=== PATIENT | female | born 1940 | race African-American/Black ===

== ENCOUNTER 2019-05-19 20:31 | Inpatient (IN) | payer MEDICARE, BC ==
[~2019-05-19] VITALS: Ht 165.1 cm; Wt 88.5 kg
[~2019-05-19 20:31] MED LIST: MIDAZOLAM HCL 5 MG/ML VIAL ONE
--- NOTE | 2019-05-19 20:31 | NUR ---
Versed 4mg IV ordered by Carlitos SHEETS and given emergently to Charlie CUEVAS 2031 - Succ. 100mg IV ordered by Carlitos SHEETS and given emergently to Charlie CUEVAS
--- NOTE | 2019-05-19 20:31 | NUR ---
Pt. BIB RA 88 for Resp. Arrest, RT called, at bedside,
--- NOTE | 2019-05-19 20:35 | NUR ---
RT at bedside, pt. entubated by ,
--- NOTE | 2019-05-19 20:37 | NUR ---
Intubated @ 2036 @ 25mm @ the lip
--- NOTE | 2019-05-19 20:38 | NUR ---
Xray confirmed placement of ET tube
[2019-05-19] MEDS ORDERED: IV NORMAL SALINE 500 ML BAG IV ONE (21:00)
--- NOTE | 2019-05-19 21:12 | NUR ---
Phleb. tech. at bedside for blood draw, blood specimens collected and sent to lab, pt. on A/C 16 rate, 700 tidal volume, 0 peep,
[2019-05-19] MEDS ORDERED: PROPOFOL 1,000 MG/100 ML BOTTLE IV ONE (21:15)
[2019-05-19] MEDS ORDERED: FUROSEMIDE 20 MG/2 ML VIAL IV ONE (21:15)
--- NOTE | 2019-05-19 21:15 | NUR ---
IV propofol ordered to titrate - began at 10 mcg/kg/min on R AC
[2019-05-19 21:17] LABS: BASOPHILS % (AUTO) 0.4 % (0.0-2.0); EOSINOPHILS # (AUTO) 0.1 K/uL (0.0-0.7); EOSINOPHILS % (AUTO) 1.7 % (0.0-7.0); HEMATOCRIT 38.4 % (31.2-41.9); LYMPHOCYTES # (AUTO) 1.4 K/uL (20.0-40.0); LYMPHOCYTES % (AUTO) 15.9 % (20.5-51.5); MEAN CORPUSCULAR HEMOGLOBIN 28.1 uug (24.7-32.8); MEAN CORPUSCULAR HGB CONC 31 g/dL (32.3-35.6); MEAN CORPUSCULAR VOLUME 90.2 fL (75.5-95.3); MONOCYTES # (AUTO) 0.3 K/uL (2.0-10.0); MONOCYTES % (AUTO) 3.5 % (0.0-11.0); NEUTROPHILS % (AUTO) 78.5 % (38.5-71.5); PLATELET COUNT (AUTO) 198 K/uL (179-408); RED BLOOD CELL COUNT(AUTO) 4.25 MIL/uL (3.63-4.92); WHITE BLOOD COUNT (AUTO) 8.9 K/uL (3.8-11.8)
[2019-05-19] MEDS ORDERED: PROPOFOL 100 ML ONE (21:20)
[2019-05-19 21:27] LABS: CARBON DIOXIDE 21 mmol/L (21-32); CHLORIDE 108 mmol/L (98-107); CREATININE 1.6 mg/dL (0.6-1.3); GLUCOSE 158 mg/dL (74-106); POTASSIUM 4.1 mmol/L (3.5-5.1); UREA NITROGEN, BLOOD 32 mg/dL (7-18)
[2019-05-19] MEDS ORDERED: LEVO100T10 PO (21:31)
[2019-05-19] MEDS ORDERED: CARV25TA2 PO (21:31)
[2019-05-19] MEDS ORDERED: FUROSEMIDE 40 MG/4 ML VIAL ONE (21:34)
[2019-05-19 21:39] LABS: ALANINE AMINOTRANSFERASE 15 U/L (14-59); ALKALINE PHOSPHATASE 134 U/L (50-136); ASPARTATE AMINOTRANSFERASE 23 U/L (15-37); BILIRUBIN,DIRECT 0.1 mg/dL (0.0-0.2); BILIRUBIN,TOTAL 0.4 mg/dL (0.2-1.0); TOTAL PROTEIN, SERUM 8.3 g/dL (6.4-8.2)
[2019-05-19 21:55] LABS: ABG BASE EXCESS -4.5 mmol/L; ABG HCO3 19.9 mmol/L; ABG PCO2 34.6 mmHg (35.0-45.0); ABG PH 7.377 (7.350-7.450); ABG PO2 344.9 mmHg (75.0-100.0); ABG SITE RIGHT RADIAL; ABG TOTAL HEMOGLOBIN 13.1 G/dL (12.0-16.0); COHb 1.2 % (0.5-1.5); MetHb 0.2 % (0.0-1.5); O2Hb 98.6 % (94.0-97.0); VENT MODE VENT - A/C; VT, ABG 700 mL
--- NOTE | 2019-05-19 21:57 | NUR ---
Gave report to Padma BUSTOS, Dr. Aguilar at bedside,
--- NOTE | 2019-05-19 22:10 | NUR ---
Jamarcus. called for US of LE
[2019-05-19] MEDS ORDERED: MISCELLANEOUS MED IV ONE (22:15)
[2019-05-19] MEDS ORDERED: HEPARIN SODIUM,PORCINE 5,000 UNITS/ML VIAL ONE (22:16)
--- NOTE | 2019-05-19 22:17 | NUR ---
Pt. given IV heparin 5000 units per MD written order to Charlie CUEVAS
--- NOTE | 2019-05-19 22:55 | NUR ---
Pt. placed on telemetry monitor, RT at bedside to vent., pt. taken off unit via stretcher, IV propofol infusing on L upper arm at 35mcg/kg/min - patent/intact - no s/s infiltration/phlebitis, R AC IV patent/intact - no s/s infiltration/phlebitis - saline locked, VSS, NAD
[2019-05-19 23:15] VITALS: BP 200/99
[2019-05-19] MEDS ORDERED: ONDANSETRON 4 MG/2 ML VIAL IV PRN (23:15)
[2019-05-19] MEDS ORDERED: NOREPINEPHRINE BITARTRATE 8 MG in IV DEXTROSE 5% 500 ML IV PRN (23:15)
[2019-05-19] MEDS ORDERED: ACETAMINOPHEN 325 MG TABLET PO PRN (23:15)
[2019-05-19] MEDS ORDERED: MAGNESIUM HYDROXIDE 30 ML LIQUID UDC PO PRN (23:15)
[2019-05-19 23:30] VITALS: BP 207/116
--- NOTE | 2019-05-19 23:31 | NUR ---
All belongings sent home w/ daughter, chart copied and taken up w/ pt.
[2019-05-19 23:45] VITALS: BP 195/69
[2019-05-20] VITALS (57 sets, daily range): BP systolic 86–217; BP diastolic 45–131
[2019-05-20] MEDS ORDERED: PIPERACILLIN/TAZOBACTAM/D5W 3.375 G in PREMIXED 1 EACH IV ONE ×2
[2019-05-20] MEDS ORDERED: NOREPINEPHRINE BITARTRATE 8 MG in IV DEXTROSE 5% 500 ML IV PRN ×2
--- NOTE | 2019-05-20 01:36 | NUR ---
RT CALLED TO ER WITH PT IN RESP. DISTRESS, PT ON O2 MASK, , PT INTUBATED BY DR MIDDLETON, 7.5 ET/TUBE 24 LIP LINE, WITH ANCHOR FAST IN PLACE WITH INITIAL SETTINGS, VT 700ML, 100%, A/C 16, SPUTUM SALCEDO, ABG DONE, DECREASE FIO2 TO 40%, RESULTS SHOWN TO DR SALTER, SUCTIONED PINK FROTHY SECRETIONS, CHANGE HME AND [place], ALL VENT ALARMS GOOD, PT WITH RT ASSIST TO CCU # 3, AMBU BAG AT BEDSIDE.Franny COVINGTON YOUTH SERVICES LIBRARIAN Addendum: 05/20/19 at 0140 by FRANKIE COVINGTON RT Amended: Links added.
[2019-05-20] MEDS: PROPOFOL 100 ML IV PRN ×6 (01:50→23:02)
[2019-05-20] MEDS ORDERED: PIPERACILLIN/TAZOBACTAM/D5W 50 ML IV ONE (02:05)
[2019-05-20] MEDS ORDERED: NITROGLYCERIN OINT 1 GM PACKET TP PRN (03:00)
[2019-05-20] MEDS ORDERED: hydrALAZINE HCL 20 MG/1 ML VIAL IV PRN (03:00)
--- NOTE | 2019-05-20 04:00 | NUR ---
PATIENT INTUBATED, SEDATED UPON ARRIVAL TO ICU. ETT PATENT. NOTIFIED ON-CALL PHYSICIAN OF CLARIFICATION OF LEVOPHED ORDERS, PROPOFOL, PROTONIX (NOT AVAILABLE), NOTIFIED OF HTN, NEED FOR KENT CATHETER FOR CORRECT I/O'S. NOTIFIED DR. SAPIN LATER OF CONTINUED HTN AND URINE OUTPUT. ORDERS RECEIVED. PATIENT LIMITED WITH WHERE PERIPHERAL ACCESS CAN BE PLACED, ED NURSE ATTEMPTED TO PLACE IV WITH US. SEE FLOW RECORD FOR PLACEMENT. LABS DRAWN. TITRATING PROPOFOL. DAUGHTER ARSALAN AMBROSIO ACCOMPANIED PATIENT FROM ED. PREVIOUS HISTORY OBTAINED FROM DAUGHTER. PHONE NUMBER IS [phone], ANOTHER DAUGHTER GEO MAHAN [phone] TO BE CALLED IF ARSALAN IS UNAVAILABLE. PATIENT LIVES WITH DAUGHTER ARSALAN AND ANOTHER UNRELATED FEMALE. PATIENT HISTORY INCLUDES MESH HERNIA REPAIR, PREVIOUS HISTORY OF CHF WITH PULMONARY FLASH EDEMA IN 2005, HTN AND HYPOTHYROID. PT'S HOME MEDICATION CURRENTLY DOCUMENTED AND CORRECT. DAUGHTER UNSURE IF CURRENT ON VACCINES. SKIN INTACT. NO EDEMA. PATIENT APPEARS COMFORTABLE AT THIS TIME. NO OBVIOUS SIGNS OF DISTRESS OR DISCOMFORT. PT NPO AT THIS TIME. NO OTHER C/O. WILL CONTINUE TO MONITOR.
[2019-05-20 05:20] LABS: BASOPHILS # (AUTO) 0.1 K/uL (0.0-8.0); BASOPHILS % (AUTO) 0.5 % (0.0-2.0); EOSINOPHILS % (AUTO) 0.1 % (0.0-7.0); HEMATOCRIT 43.1 % (31.2-41.9); HEMOGLOBIN 14.8 g/dL (10.9-14.3); LYMPHOCYTES # (AUTO) 1.1 K/uL (20.0-40.0); LYMPHOCYTES % (AUTO) 10.7 % (20.5-51.5); MEAN CORPUSCULAR HGB CONC 34 g/dL (32.3-35.6); MEAN CORPUSCULAR VOLUME 84.5 fL (75.5-95.3); MONOCYTES # (AUTO) 0.4 K/uL (2.0-10.0); MONOCYTES % (AUTO) 4.2 % (0.0-11.0); NEUTROPHILS # (AUTO) 8.9 K/uL (1.8-8.9); NEUTROPHILS % (AUTO) 84.5 % (38.5-71.5); PLATELET COUNT (AUTO) 258 K/uL (179-408); WHITE BLOOD COUNT (AUTO) 10.5 K/uL (3.8-11.8)
[2019-05-20 05:25] LABS: CARBON DIOXIDE 24 mmol/L (21-32); CHLORIDE 106 mmol/L (98-107); CREATININE 1.6 mg/dL (0.6-1.3); GLUCOSE 96 mg/dL (74-106); PHOSPHOROUS 2.3 mg/dL (2.5-4.9); POTASSIUM 3.8 mmol/L (3.5-5.1); UREA NITROGEN, BLOOD 29 mg/dL (7-18)
[2019-05-20] MEDS ORDERED: PIPERACILLIN/TAZOBACTAM/D5W 3.375 G in PREMIXED 1 EACH IV SCH (06:00)
--- NOTE | 2019-05-20 06:31 | NUR ---
PAGED DR. SPAIN REGARDING INCREASING BP'S. 181/61 AFTER PRN ANTIHYPERTENSIVES. WILL AWAIT CALL BACK.
[2019-05-20] MEDS ORDERED: SUCCINYLCHOLINE CHLORIDE 200 MG/10 ML VIAL IV ONE (07:00)
--- NOTE | 2019-05-20 07:10 | NUR ---
Bedside report received and patient noted to be restless agitated attempting to reach and remove ETT. sbp above 160's. propofol increases by reporting R.N. And will continue titration to reach adequate sedation. Addendum: 05/20/19 at 0953 by ISHA RIVERA RN Vent: A/C/ 16, 40% FIO2, Tv 700. payne to gravity.
--- NOTE | 2019-05-20 07:14 | NUR ---
REPORT GIVEN TO AKASH VIEIRA. DR. SPAIN DID NOT CALL BACK. PATIENT APPEARS CALM AND COOPERATIVE AT THIS TIME. NO OTHER C/O.
[2019-05-20 08:07] LABS: ABG BASE EXCESS 2.4 mmol/L; ABG HCO3 21.1 mmol/L; ABG PH 7.641 (7.350-7.450); ABG PO2 148.3 mmHg (75.0-100.0); ABG SITE RIGHT BRACHIAL; COHb 1.1 % (0.5-1.5); MetHb 0.3 % (0.0-1.5); O2Hb 98.1 % (94.0-97.0); VENT MODE VENT - A/C; VT, ABG 700 mL
--- NOTE | 2019-05-20 08:15 | NUR ---
G DONE, RESULTS GIVEN TO ISHA BUSTOS.
--- NOTE | 2019-05-20 08:19 | NUR ---
PT RECEIVED ON AC MODE VENT, NO SOB NOTED, SEDATED, GOOD GAG REFLEX NOTED, VENT CHECKED, ALARMS ON AND AUDIBLE, WILL MONITOR. PT IS STABLE AT THIS TIME.
[2019-05-20] MEDS ORDERED: ACETAMINOPHEN 650 MG SUPP.RECT RC PRN (08:30)
[2019-05-20] MEDS: FAMOTIDINE. 20 MG/2 ML VIAL IV SCH (08:57)
[2019-05-20] MEDS ORDERED: PANTOPRAZOLE SODIUM 40 MG VIAL IV SCH (09:00)
[2019-05-20] MEDS: PIPERACILLIN/TAZOBACTAM/D5W 3.375 G in PREMIXED 1 EACH IV SCH ×2 (09:27→18:08)
--- NOTE | 2019-05-20 10:15 | NUR ---
Pulmonary services, Dr. Prabhakar in the unit to examine patient; full report given. vent setting orders received and carried out by RT. Troncoso. A/C Rate of 12, TV 600 and F2 40%.
[2019-05-20 12:18] LABS: ABG BASE EXCESS 0.4 mmol/L; ABG HCO3 20.7 mmol/L; ABG PCO2 22.8 mmHg (35.0-45.0); ABG PH 7.576 (7.350-7.450); ABG PO2 150.7 mmHg (75.0-100.0); ABG SITE LEFT RADIAL; MetHb 0.3 % (0.0-1.5); O2Hb 98.1 % (94.0-97.0); VENT MODE VENT - A/C; VT, ABG 600 mL
--- NOTE | 2019-05-20 12:18 | NUR ---
Cardiac services, Dr. Montiel in the unit to examine pt. report given.
--- NOTE | 2019-05-20 12:20 | NUR ---
ABG results called to attending pulmonary Dr. Prabhakar.
[2019-05-20] MEDS ORDERED: CARVEDILOL 12.5 MG TABLET PO SCH (13:07)
[2019-05-20] MEDS ORDERED: FUROSEMIDE 20 MG/2 ML VIAL IV ONE (13:15)
[2019-05-20] MEDS: ENOXAPARIN SODIUM 80 MG/0.8 ML DISP.SYRIN SQ SCH ×2 (13:43→20:55)
[2019-05-20] MEDS: AZITHROMYCIN IV 500 MG in IV DEXTROSE 5% 250 ML IV SCH (13:43)
--- NOTE | 2019-05-20 14:00 | NUR ---
Echo in progress
--- NOTE | 2019-05-20 14:30 | NUR ---
kidney US. in progress.
[2019-05-20 15:06] LABS: *BILIRUBIN,URIN NEGATIVE (NEGATIVE); *BLOOD, URINE 2+ (NEGATIVE); *CLARITY,URINE CLEAR (CLEAR); *COLOR,URINE YELLOW (YELLOW); *KETONES,URINE NEGATIVE (NEGATIVE); *UROBILINOGEN,URINE 0.2 E.U./dl (NORMAL); LEUKOCYTE ESTERASE ,URINE 2+ (NEGATIVE); NITRITE, URINE NEGATIVE (NEGATIVE); UGLUCOSE NEGATIVE (NEGATIVE)
[2019-05-20 15:19] LABS: *CREATININE,URINE 72.8 mg/dL (30-125); *URINE TOTAL PROTEIN RANDOM 12.5 mg/dL (<150/24HR)
[2019-05-20 15:26] LABS: SQUAMOUS EPITHELIAL CELL,UR FEW /HPF (NONE SEEN)
[2019-05-20 15:29] LABS: BACTERIA,URINE NONE SEEN /HPF (NONE SEEN); RBC,URINE TNTC /HPF (0-3)
[2019-05-20] MEDS ORDERED: SODIUM PHOSPHATE MM 15 MM in IV DEXTROSE 5% 250 ML IV ONE (16:30)
[2019-05-20] MEDS: CARVEDILOL 12.5 MG TABLET PO SCH (18:10)
--- NOTE | 2019-05-20 19:11 | NUR ---
Received pt orally intubated with 7.5ETT~23cm at lip line, on Ayala vent with the following settings of AC-12, Vt-600, FIO2-40%. No s/s of respiratory distress noted. Airway care done, pt responded to physical stimuli. HME changed. ETT moved to the right. Resus. bag at bedside. Vent and alarms checked and reset.
--- NOTE | 2019-05-20 19:35 | NUR ---
Received pt HOB elevated, sedated with DIPRIVAN drip running at 48 mcg/kg/min on left PIV AC 18g. Eyes reactive, upper and lower extremities flaccid. P orally intubated with vent settings: AC 12, TV 600, FIO2 40%. Oral care and suctioning done with moderate amount of thin, white secretions. Pt shows no s/s of acute respiratory distress. F/C intact. Assessment completed. VSS, afebrile. Aspiration precautions and safety measures observed. Pt turned and repositioned. See CCU flowsheet for full assessment and clinical data.
--- NOTE | 2019-05-20 20:05 | NUR ---
Pts daughters (Daphne and Fanny) at bedside.
--- NOTE | 2019-05-20 20:50 | NUR ---
Sedation vacation started. After 15 minutes, pt was able to follow simple commands such as open eyes and squeeze hands. Pt remained calm and cooperative. Diprivan was started again after 10 minutes. Continue to monitor pt.
[2019-05-20] MEDS: IV NORMAL SALINE 250 ML IV PRN (21:49)
[2019-05-21] VITALS (28 sets, daily range): BP systolic 92–153; BP diastolic 39–87
--- NOTE | 2019-05-21 00:30 | NUR ---
Paged monitor technician JUDIT SHEETS regarding pt's trending troponin level from 0.080 to 0.136. No new orders received. Continue to monitor pt.
[2019-05-21] MEDS: PIPERACILLIN/TAZOBACTAM/D5W 3.375 G in PREMIXED 1 EACH IV SCH ×2 (01:08→12:53)
[2019-05-21] MEDS: PROPOFOL 100 ML IV PRN (04:55)
--- NOTE | 2019-05-21 05:31 | NUR ---
AM care provided. Pt kept clean and dry. Pt suctioned with moderate amounts of thin, white secretions. HOB elevated maintained. Aspiration precautions observed. Pt turned and repositioned, will continue to monitor.
[2019-05-21 05:42] LABS: BASOPHILS # (AUTO) 0.1 K/uL (0.0-8.0); BASOPHILS % (AUTO) 0.7 % (0.0-2.0); EOSINOPHILS # (AUTO) 0.1 K/uL (0.0-0.7); EOSINOPHILS % (AUTO) 1.2 % (0.0-7.0); HEMATOCRIT 43.1 % (31.2-41.9); HEMOGLOBIN 14.1 g/dL (10.9-14.3); LYMPHOCYTES # (AUTO) 1.7 K/uL (20.0-40.0); LYMPHOCYTES % (AUTO) 14.8 % (20.5-51.5); MEAN CORPUSCULAR HEMOGLOBIN 28.2 uug (24.7-32.8); MEAN CORPUSCULAR HGB CONC 33 g/dL (32.3-35.6); MEAN CORPUSCULAR VOLUME 86.3 fL (75.5-95.3); MONOCYTES % (AUTO) 8.3 % (0.0-11.0); NEUTROPHILS # (AUTO) 8.7 K/uL (1.8-8.9); PLATELET COUNT (AUTO) 245 K/uL (179-408); RED BLOOD CELL COUNT(AUTO) 4.99 MIL/uL (3.63-4.92); WHITE BLOOD COUNT (AUTO) 11.7 K/uL (3.8-11.8)
[2019-05-21 05:52] LABS: ALANINE AMINOTRANSFERASE 14 U/L (14-59); ALKALINE PHOSPHATASE 123 U/L (50-136); ASPARTATE AMINOTRANSFERASE 20 U/L (15-37); CARBON DIOXIDE 26 mmol/L (21-32); CHLORIDE 104 mmol/L (98-107); CREATINE KINASE, TOTAL 111 U/L (26-192); CREATININE 2.2 mg/dL (0.6-1.3); GLUCOSE 99 mg/dL (74-106); MAGNESIUM 2.1 mg/dL (1.8-2.4); PHOSPHOROUS 5.5 mg/dL (2.5-4.9); POTASSIUM 3.2 mmol/L (3.5-5.1); TOTAL PROTEIN, SERUM 9.2 g/dL (6.4-8.2); UREA NITROGEN, BLOOD 28 mg/dL (7-18)
--- NOTE | 2019-05-21 06:30 | NUR ---
DR GUNTER here to see and evaluate pt. Report given. made aware of occasional PAC/PVCs on pts EKG rhythm. No new orders received. Will continue to monitor.
[2019-05-21] MEDS ORDERED: POTASSIUM CHLORIDE 20 MEQ POWDER PACKET GT ONE (06:45)
--- NOTE | 2019-05-21 07:00 | NUR ---
Received patient on ventilator propofol running at 10mcg/kg in preparation for CPAP trial and at 0710 patient placed on CPAP with PSV of 8 propofol turn off by night nurse. Patient saturation of 99%, sbp of 149/77, with HR of 98 RR in the low 20's. No distress noted. Patient AAOx3. follows command, and coached to suction herself.
[2019-05-21 09:19] LABS: ABG BASE EXCESS 0.1 mmol/L; ABG HCO3 23.7 mmol/L; ABG PCO2 35.1 mmHg (35.0-45.0); ABG PH 7.447 (7.350-7.450); ABG PO2 123.4 mmHg (75.0-100.0); ABG SITE RIGHT RADIAL; ABG TOTAL HEMOGLOBIN 13.6 G/dL (12.0-16.0); CPAP,BG 0 cmH20; MetHb 0.3 % (0.0-1.5); O2Hb 97.3 % (94.0-97.0); VENT MODE VENT - CPAP/PS8; VT, ABG 650 mL
[2019-05-21] MEDS ORDERED: POTASSIUM CHLORIDE 20 MEQ POWDER PACKET NG ONE (09:30)
[2019-05-21] MEDS: FAMOTIDINE. 20 MG/2 ML VIAL IV SCH (10:00)
--- NOTE | 2019-05-21 10:00 | NUR ---
Pulmonary services, Dr. Prabhakar in the unit to examine patient, full report given. Orders to extubate and at 1015 patient extubated by RT team and placed in 2LNC. saturation within desired limits 97%. Hr 108, sbp of 128/72. Ng removed with extubation as ordered by . Pt's daughter at bedside all the time.
[2019-05-21] MEDS: CARVEDILOL 12.5 MG TABLET PO SCH ×2 (10:01→18:21)
[2019-05-21] MEDS ORDERED: DC PROPOFOL ONCE EXTUBATED XX PRN (10:15)
--- NOTE | 2019-05-21 11:30 | NUR ---
Patient taken down for VQ scan at this time. vitals stable.
[2019-05-21] MEDS: AZITHROMYCIN IV 500 MG in IV DEXTROSE 5% 250 ML IV SCH (11:38)
--- NOTE | 2019-05-21 12:00 | NUR ---
Bedside nursing Swallow Evaluation done patient noted to be coughing after liquids. Patient with persistent cough with thick bloody secretion and noted to have a horse voice. Patient instructed to rest her voice and PT swallow evaluation will be order as ordered by Pulmonary service, Dr. Prabhakar
--- NOTE | 2019-05-21 15:15 | NUR ---
Patient back from VQ scan at this time with vitals stable during procedure ICU monitoring. No c/of pain. Iv line patent. vitals fo HR 88, 99% FIO2, RR 14, 130/84. NC 2 liters. Will continue to monitor.
--- NOTE | 2019-05-21 18:00 | NUR ---
Attending physician Dr. Alexander in the unit to examine patient.
--- NOTE | 2019-05-21 19:30 | NUR ---
Received pt HOB elevated, alert and oriented x4, speech clear, able to follow commands. Discussed and reviewed plan of care with pt, pt verbalizes understanding. Pt O2 sat up to 99% via 2L NC. IVs on right AC 18 g and left hand 20 g intact and patent. F/C in place with no s/s of leaking. Pt c/o of throat pain 03/08 at this time. Pt extubated 05/21/19 at 1015 this morning. VSS, afebrile. Assessment completed. Aspiration precautions and safety measures in place. Will continue to monitor. Addendum: 05/22/19 at 0515 by JUANJO LANG RN Instructed pt how to use suction equipment (yankeur). Pt verbalizes understanding and is able to demonstrate demo. Will continue to monitor.
--- NOTE | 2019-05-21 20:45 | NUR ---
Pt refused LOVENOX 80 mg. Discussed the risks and benefits, pt verbalizes understanding and states " I don't think I need it." Will continue to monitor.
[2019-05-21] MEDS ORDERED: ENOXAPARIN SODIUM 80 MG/0.8 ML DISP.SYRIN SQ SCH (21:00)
--- NOTE | 2019-05-21 21:00 | NUR ---
Rocio Mcconnell, at pt bedside.
[2019-05-22] VITALS (15 sets, daily range): BP systolic 99–140; BP diastolic 54–75
[2019-05-22] MEDS: IV NORMAL SALINE 250 ML IV PRN (00:07)
[2019-05-22] MEDS: PIPERACILLIN/TAZOBACTAM/D5W 3.375 G in PREMIXED 1 EACH IV SCH ×2 (00:07→13:09)
[2019-05-22 04:55] LABS: BASOPHILS # (AUTO) 0.1 K/uL (0.0-8.0); BASOPHILS % (AUTO) 0.6 % (0.0-2.0); EOSINOPHILS # (AUTO) 0.3 K/uL (0.0-0.7); EOSINOPHILS % (AUTO) 2.7 % (0.0-7.0); HEMATOCRIT 34.2 % (31.2-41.9); HEMOGLOBIN 11.2 g/dL (10.9-14.3); LYMPHOCYTES # (AUTO) 1.6 K/uL (20.0-40.0); LYMPHOCYTES % (AUTO) 14.2 % (20.5-51.5); MEAN CORPUSCULAR HEMOGLOBIN 27.9 uug (24.7-32.8); MEAN CORPUSCULAR HGB CONC 33 g/dL (32.3-35.6); MONOCYTES # (AUTO) 1.2 K/uL (2.0-10.0); MONOCYTES % (AUTO) 10.4 % (0.0-11.0); NEUTROPHILS # (AUTO) 8.2 K/uL (1.8-8.9); NEUTROPHILS % (AUTO) 72.1 % (38.5-71.5); PLATELET COUNT (AUTO) 189 K/uL (179-408); RED BLOOD CELL COUNT(AUTO) 4.02 MIL/uL (3.63-4.92); WHITE BLOOD COUNT (AUTO) 11.3 K/uL (3.8-11.8)
[2019-05-22 05:24] LABS: CARBON DIOXIDE 27 mmol/L (21-32); CHLORIDE 107 mmol/L (98-107); CREATININE 2.5 mg/dL (0.6-1.3); GLUCOSE 96 mg/dL (74-106); MAGNESIUM 2.2 mg/dL (1.8-2.4); PHOSPHOROUS 5.7 mg/dL (2.5-4.9); POTASSIUM 3.7 mmol/L (3.5-5.1); UREA NITROGEN, BLOOD 33 mg/dL (7-18)
--- NOTE | 2019-05-22 06:00 | NUR ---
Pt slept well in between care. AM care given at this time. HOB elevated and safety measures maintained. VSS, afebrile. Pt denies pain, discomfort or SOB. Will continue to monitor pt.
[2019-05-22] MEDS: CARVEDILOL 12.5 MG TABLET PO SCH ×2 (07:30→17:30)
--- NOTE | 2019-05-22 07:46 | NUR ---
Received pt. in bed AAOX3 vitals signs stable, no c/of pain or any other discomfort. on NC .5L. saturation above 95%. Will continue with care plan.
[2019-05-22] MEDS: FAMOTIDINE. 20 MG/2 ML VIAL IV SCH (08:01)
[2019-05-22 09:33] LABS: ABG BASE EXCESS 0.7 mmol/L; ABG HCO3 25.4 mmol/L; ABG PCO2 41.3 mmHg (35.0-45.0); ABG PH 7.407 (7.350-7.450); ABG PO2 66.8 mmHg (75.0-100.0); ABG SITE LEFT BRACHIAL; ABG TOTAL HEMOGLOBIN 11.9 G/dL (12.0-16.0); COHb 1.5 % (0.5-1.5); MetHb 0.2 % (0.0-1.5); O2Hb 91.8 % (94.0-97.0); VENT MODE ROOM AIR
[2019-05-22] MEDS ORDERED: POTASSIUM CHLORIDE 20 MEQ TAB.PRT.SR PO ONE (10:00)
[2019-05-22] MEDS: ACIDOPHILUS/BULGARICUS CHEW TAB PO SCH ×2 (10:30→20:13)
--- NOTE | 2019-05-22 11:01 | NUR ---
Floranex and potassium po . drop on the floor. pharmacist notified.
[2019-05-22 11:25] LABS: *BILIRUBIN,URIN NEGATIVE (NEGATIVE); *BLOOD, URINE 3+ (NEGATIVE); *CLARITY,URINE CLOUDY (CLEAR); *COLOR,URINE YELLOW (YELLOW); *KETONES,URINE NEGATIVE (NEGATIVE); LEUKOCYTE ESTERASE ,URINE TRACE (NEGATIVE); NITRITE, URINE NEGATIVE (NEGATIVE); PH,URINE 5.5 (5.0-8.0); UGLUCOSE NEGATIVE (NEGATIVE)
[2019-05-22 11:35] LABS: BACTERIA,URINE FEW /HPF (NONE SEEN); RBC,URINE TNTC /HPF (0-3); SQUAMOUS EPITHELIAL CELL,UR FEW /HPF (NONE SEEN)
[2019-05-22] MEDS: AZITHROMYCIN IV 500 MG in IV DEXTROSE 5% 250 ML IV SCH (11:44)
[2019-05-22 12:06] LABS: A/G RATIO 0.7 (0.7-1.7); ALBUMIN 3.3 g/dL (2.9-4.4); ALPHA-1-GLOBULIN 0.4 g/dL (0.0-0.4); BETA GLOBULIN 1.4 g/dL (0.7-1.3); GAMMA GLOBULIN 2.3 g/dL (0.4-1.8); M-SPIKE Not Observed g/dL (Not Observed)
--- NOTE | 2019-05-22 15:45 | NUR ---
At this time patient's urine turn pink to bloody, Nephrology services Dr. Fraga and Dr. Prabhakar in the facility and notified. As stated blood thinners will be dcd. by them, and orders to continue monitor patient received.
[2019-05-22] MEDS: IV 1/2NS 1000 ML 1,000 ML IV PRN (17:19)
--- NOTE | 2019-05-22 19:30 | NUR ---
Patient received lying in bed with family at bed side. no signs of acute distress. v/s stable. safety and comfort measures provided. will continue plan of care. Bautista catheter patent and color is pink and not red at this time.
[2019-05-22] MEDS: CULTURELLE CAPSULE PO SCH (20:13)
[2019-05-23] VITALS: BP 120/66
[2019-05-23 04:00] VITALS: BP 135/69
--- NOTE | 2019-05-23 05:37 | NUR ---
patient slept intermittently. no signs of acute distress at this time. safety and comfort measures provided. Bautista catheter patent, yellow and lesli in color. no s/s of hematuria at this time. v/s stable. will endorse care to morning nurse.
[2019-05-23 06:33] LABS: BASOPHILS # (AUTO) 0.1 K/uL (0.0-8.0); BASOPHILS % (AUTO) 0.8 % (0.0-2.0); EOSINOPHILS # (AUTO) 0.4 K/uL (0.0-0.7); EOSINOPHILS % (AUTO) 5.4 % (0.0-7.0); HEMATOCRIT 33.8 % (31.2-41.9); LYMPHOCYTES # (AUTO) 1.4 K/uL (20.0-40.0); LYMPHOCYTES % (AUTO) 20.1 % (20.5-51.5); MEAN CORPUSCULAR HEMOGLOBIN 28.6 uug (24.7-32.8); MEAN CORPUSCULAR HGB CONC 33 g/dL (32.3-35.6); MEAN CORPUSCULAR VOLUME 87.6 fL (75.5-95.3); MONOCYTES # (AUTO) 0.7 K/uL (2.0-10.0); MONOCYTES % (AUTO) 10.7 % (0.0-11.0); NEUTROPHILS # (AUTO) 4.3 K/uL (1.8-8.9); PLATELET COUNT (AUTO) 192 K/uL (179-408); RED BLOOD CELL COUNT(AUTO) 3.86 MIL/uL (3.63-4.92); WHITE BLOOD COUNT (AUTO) 6.8 K/uL (3.8-11.8)
[2019-05-23 06:41] LABS: ALANINE AMINOTRANSFERASE 11 U/L (14-59); ALKALINE PHOSPHATASE 88 U/L (50-136); ASPARTATE AMINOTRANSFERASE 13 U/L (15-37); BILIRUBIN,TOTAL 0.5 mg/dL (0.2-1.0); CARBON DIOXIDE 27 mmol/L (21-32); CHLORIDE 106 mmol/L (98-107); CREATININE 2.2 mg/dL (0.6-1.3); GLUCOSE 94 mg/dL (74-106); MAGNESIUM 2.2 mg/dL (1.8-2.4); PHOSPHOROUS 3.9 mg/dL (2.5-4.9); POTASSIUM 3.6 mmol/L (3.5-5.1); TOTAL PROTEIN, SERUM 7.4 g/dL (6.4-8.2); UREA NITROGEN, BLOOD 33 mg/dL (7-18)
[2019-05-23] MEDS ORDERED: PANTOPRAZOLE SODIUM 40 MG TABLET.DR PO SCH (07:00)
--- NOTE | 2019-05-23 07:45 | NUR ---
Patient resting comfortably in bed at this time. No signs of respiratory distress. Stable. SR on tele. IV fluids running. A/Ox4, Ambulatory with assist. Safety measures implemented. Bed alarm on, Call light within reach of patient. Will continue to monitor throughout shift.
[2019-05-23 08:37] VITALS: BP 164/84
[2019-05-23] MEDS: ACIDOPHILUS/BULGARICUS CHEW TAB PO SCH (08:46)
[2019-05-23] MEDS: CARVEDILOL 12.5 MG TABLET PO SCH ×2 (08:46→17:55)
[2019-05-23] MEDS: CULTURELLE CAPSULE PO SCH (08:46)
[2019-05-23] MEDS ORDERED: ASPIRIN EC 81 MG TABLET.DR PO SCH (09:00)
[2019-05-23 09:14] LABS: ABG BASE EXCESS -0.5 mmol/L; ABG HCO3 24.5 mmol/L; ABG PCO2 41.6 mmHg (35.0-45.0); ABG PH 7.388 (7.350-7.450); ABG PO2 66.3 mmHg (75.0-100.0); ABG SITE RIGHT RADIAL; ABG TOTAL HEMOGLOBIN 12.1 G/dL (12.0-16.0); COHb 1.1 % (0.5-1.5); MetHb 0.3 % (0.0-1.5); O2Hb 92.1 % (94.0-97.0); VENT MODE Room Air
--- NOTE | 2019-05-23 10:30 | NUR ---
PATIENT PARTICIPATING WITH PHYSICAL THERAPY AT THIS TIME. SATURATING WNL ON RA. NO SIGNS OF SOB. DENIES ANY PAIN.
[2019-05-23] MEDS ORDERED: AMLODIPINE 5 MG TABLET PO SCH (11:00)
[2019-05-23 11:06] VITALS: BP 134/72
[2019-05-23] MEDS ORDERED: AZITHROMYCIN 250 MG TABLET PO SCH (11:44)
--- NOTE | 2019-05-23 12:20 | NUR ---
PATIENT TOLERATING DIET VERY WELL FOR LUNCH. NO SIGNS OF ASPIRATION. ASPIRATION PRECAUTIONS IMPLEMENTED. IV-FLUIDS RUNNING. NO SIGNS OF DISTRESS. NO COMPLAINTS OF PAIN. NO SOB NOTED. WILL CONTINUE TO MONITOR.
[2019-05-23] MEDS: IV 1/2NS 1000 ML 1,000 ML IV PRN (12:30)
[2019-05-23 15:11] VITALS: BP 136/73
--- NOTE | 2019-05-23 17:42 | NUR ---
RECEIVED ORDER FROM MD TO D/C KENT CATHETER BEFORE PATIENT IS TRANSFERRED TO ACUTE REHAB UNIT.
[2019-05-23 17:55] VITALS: BP 129/69
--- NOTE | 2019-05-23 18:08 | NUR ---
PATIENT RESTING COMFORTABLY IN BED AT THIS TIME. TOLERATING DINNER WELL. NO SIGNS OF ASPIRATION. ASPIRATION PRECAUTIONS IMPLEMENTED. NUMEROUS FAMILY MEMBERS AT BEDSIDE AT THIS TIME. VITAL SIGNS STABLE. NO SIGNS OF RESPIRATORY DISTRESS - SATURATING WNL ON RA. WILL BE TRANSFERRED TO ACUTE REHAB UNIT DURING THE PROGRAMMER DEVELOPER. DISCHARGE DOCUMENTATION ALREADY COMPLETED, AWAITING MD DISCHARGE ORDERS TO TRANSFER PATIENT TO ARU. SAFETY MEASURES IMPLEMENTED, CALL LIGHT WITHIN REACH OF PATIENT. BED ALARM ON. WILL CONTINUE TO MONITOR PATIENT UNTIL END OF SHIFT.
--- NOTE | 2019-05-23 18:53 | NUR ---
KENT CATHETER DISCONTINUED AT THIS TIME PER MD ORDERS. PATIENT URINATED IN TOILET FOLLOWING KENT CATHETER REMOVAL.
[2019-05-23] MEDS ORDERED: AMLO5TAB9 PO (19:54)
[2019-05-23] MEDS ORDERED: DOCU-141 PO (19:54)
[2019-05-23] MEDS ORDERED: CARV12.52 PO (19:54)
[2019-05-23] MEDS ORDERED: MULT1TAB73 PO (19:54)
[2019-05-23] MEDS ORDERED: PANT40TA2 PO (19:54)
[2019-05-23] MEDS ORDERED: ACID1TAB4 PO ×2 (19:54)
[2019-05-23] MEDS ORDERED: ACET325T53 PO (19:54)
[2019-05-23] MEDS ORDERED: NUTR113P PO (19:54)
[2019-05-23] MEDS ORDERED: ASPI-618 PO (19:54)
[2019-05-23] MEDS ORDERED: POLY17PO4 PO (19:54)
[2019-05-23] MEDS ORDERED: AZIT250T13 PO (19:54)
--- NOTE | 2019-05-23 21:12 | NUR ---
Report given to Tarik. Discharge papers printed, signed by pt, belonging check list signed. IV and ID band removed. Charge nurse took pt. down via wheel chair. Pt. in no distress.
== END 2019-05-23 21:30 | DRG 871 ==
LOC: ER 20:31 → CCU 22:03 → TELE3 05-22 13:00 → MEDSURG3 05-23 13:26
PROVIDERS: ADMIT Internal Medicine; ATTEND Internal Medicine
PROC: 5A1945Z Respiratory Ventilation, 24-96 Consecutive Hours (ICD-10-PCS; principal; 2019-05-19)
PROC: 0BH17EZ Insertion of Endotracheal Airway into Trachea, Via Natural or Artificial Opening (ICD-10-PCS; 2019-05-19)
DX: A41.9 Sepsis, unspecified organism (principal); J96.01 Acute respiratory failure with hypoxia; N17.0 Acute kidney failure with tubular necrosis; I50.43 Acute on chronic combined systolic (congestive) and diastolic (congestive) heart failure; I21.A1 Myocardial infarction type 2; I13.0 Hypertensive heart and chronic kidney disease with heart failure and stage 1 through stage 4 chronic kidney disease, or unspecified chronic kidney disease; I16.9 Hypertensive crisis, unspecified; I31.3 Pericardial effusion (noninflammatory); D68.59 Other primary thrombophilia; J98.11 Atelectasis; N18.9 Chronic kidney disease, unspecified; E66.9 Obesity, unspecified; Z68.32 Body mass index [BMI] 32.0-32.9, adult; Z74.09 Other reduced mobility; R77.1 Abnormality of globulin; R31.0 Gross hematuria; E03.9 Hypothyroidism, unspecified
CPT/HCPCS: 36415; 36600; 70030-TC; 71045; 78579; 83735; 83970; 84100; 84155; 84156; 84165; 84300; 84443; 84550; 85025; 85730; 87040; 87070; 87086; 92526; 92610; 93005; 93307; 94002; 94003; 97116; 97530; A4663; A9540; A9567; G0378; J0330; J0360; J0456; J1644; J1650; J1940; J2250; J2543; J3490; J7030; J7040; J7050; J7060; Q0144

== ENCOUNTER 2019-05-23 21:34 | Inpatient (IN) | payer MEDICARE, BC ==
[~2019-05-23] VITALS: Ht 165.1 cm; Wt 86.2 kg
[2019-05-23 21:25] VITALS: BP 137/70
[~2019-05-23 21:34] MED LIST changes: +ACET325T53 PO; +ACID1TAB4 PO; +AMLO5TAB9 PO; +ASPI-618 PO; +AZIT250T13 PO; +CARV12.52 PO; +CARV25TA2 PO; +DOCU-141 PO; +LEVO100T10 PO; -MIDAZOLAM HCL 5 MG/ML VIAL ONE; +MULT1TAB73 PO; +NUTR113P PO; +PANT40TA2 PO; +POLY17PO4 PO
[2019-05-23] MEDS ORDERED: AZITHROMYCIN 250 MG TABLET PO SCH (22:00)
[2019-05-23 22:13] VITALS: BP 137/70
[2019-05-23] MEDS ORDERED: ACETAMINOPHEN 325 MG TABLET PO PRN (22:15)
[2019-05-23] MEDS ORDERED: MIRALAX 17 GM POWD.PACK PO PRN (22:15)
[2019-05-23] MEDS ORDERED: AZITHROMYCIN 250 MG TABLET ONE (22:50)
--- NOTE | 2019-05-23 23:20 | NUR ---
Admitted a 79 years old female patient at 2100 from Med-Surg, via wheelchair, accompanied with an RN and her family members. AAO x4. No acute distress or SOB was noted. On room air. Able to make needs known. Patient. is under the care of Dr. Solis and Dr. Benjamin Young The admitting dx: Acute hypoxic respiratory failure, acute on chronic heat failure, HTN. Condition: fair. VS: BP: 137/70, DE: 79, RR:20, T:98.0 F, No complain of pain. FC, NKA, on cardiac diet. Physical assessments done, skin checked, oriented patient to the unit and educated her to use the call light. All admission work completed. MRSA swap taken and sent to the lab. All needs attended and met promptly. Dr. Solis made aware of patient admission. Called outside pharmacy for verification of medications. Safety measures in place. Fall precaution observed. bed in low position, side rails up x2 far safety, bed in locked position, bed alarm on. Call light and all frequently used items within reach. Emphasize use of call light system, patient. verbalized clear understanding. Will continue to monitor and endorse to oncoming shift accordingly.
[2019-05-23] MEDS: GUAIFENESIN/DEXTROMETHORPHAN 5 ML UDC PO PRN (23:34)
[2019-05-24 06:04] VITALS: BP 159/66
[2019-05-24] MEDS: PANTOPRAZOLE SODIUM 40 MG TABLET.DR PO SCH (06:41)
[2019-05-24 08:00] VITALS: BP 166/91
[2019-05-24] MEDS ORDERED: ACIDOPHILUS/BULGARICUS CHEW TAB PO SCH (09:00)
[2019-05-24] MEDS ORDERED: AMLODIPINE 5 MG TABLET PO SCH (09:00)
[2019-05-24] MEDS ORDERED: NUTRITIONAL SUPPLEMENT 113 GM PO SCH (09:00)
[2019-05-24] MEDS: MULTIVITAMINS,THERAPEUTIC TABLET PO SCH (09:41)
[2019-05-24] MEDS: DOCUSATE SODIUM 100 MG CAPSULE PO SCH ×2 (09:41→20:23)
[2019-05-24] MEDS: ASPIRIN EC 81 MG TABLET.DR PO SCH (09:42)
[2019-05-24] MEDS: ACIDOPHILUS/BULGARICUS CHEW TAB PO SCH ×2 (09:42→17:56)
[2019-05-24] MEDS: LEVOTHYROXINE SODIUM 100 MCG TABLET PO SCH (09:43)
[2019-05-24] MEDS: ENSURE ENLIVE (VAN) 240 ML LIQUID PO SCH (09:44)
[2019-05-24 16:00] VITALS: BP 167/65
[2019-05-24] MEDS: CARVEDILOL 12.5 MG TABLET PO SCH ×2 (16:22→17:56)
[2019-05-24 21:22] VITALS: BP 149/55
[2019-05-24] MEDS: AMLODIPINE 5 MG TABLET PO SCH (21:42)
--- NOTE | 2019-05-25 04:59 | NUR ---
Patient received in bed, AAO x4. Able to make needs known. No acute distress or SOB noted. On room air. No Complain of pain at this time. Family and friends at bedside. All due medication given as ordered and well tolerated. Physical assessment done. Safety measures observed. Fall precaution maintained. Bed in low position, side rails up x2 for safety, brake and alarm on. call light and personal belongings within reach. Continue to monitor and will endorse to the day shift nurse accordingly.
[2019-05-25] MEDS: hydrALAZINE HCL 25 MG TABLET PO PRN ×2 (05:58→17:39)
[2019-05-25 06:19] VITALS: BP 156/68
[2019-05-25] MEDS: PANTOPRAZOLE SODIUM 40 MG TABLET.DR PO SCH (06:36)
[2019-05-25] MEDS: LEVOTHYROXINE SODIUM 100 MCG TABLET PO SCH (06:36)
[2019-05-25] MEDS: MULTIVITAMINS,THERAPEUTIC TABLET PO SCH (08:23)
[2019-05-25] MEDS: DOCUSATE SODIUM 100 MG CAPSULE PO SCH ×2 (08:23→20:24)
[2019-05-25] MEDS: ASPIRIN EC 81 MG TABLET.DR PO SCH (08:24)
[2019-05-25] MEDS: AMLODIPINE 5 MG TABLET PO SCH ×2 (08:24→20:24)
[2019-05-25] MEDS: ACIDOPHILUS/BULGARICUS CHEW TAB PO SCH ×2 (08:24→17:38)
[2019-05-25] MEDS: CARVEDILOL 12.5 MG TABLET PO SCH ×2 (08:25→17:50)
[2019-05-25] MEDS: ENSURE ENLIVE (VAN) 240 ML LIQUID PO SCH (08:26)
[2019-05-25 08:55] VITALS: BP 154/73
--- NOTE | 2019-05-25 09:05 | NUR ---
INTERDISCIPLINARY TEAM CONFERENCE
[2019-05-25 18:00] VITALS: BP 168/73
--- NOTE | 2019-05-25 19:35 | NUR ---
Patient received in bed, AAO x4. Able to make needs known. No acute distress or SOB noted. On room air. No Complain of pain. Family and friends are at the bedside. Physical assessment done. Safety measures observed. Fall precaution maintained. Bed in low position, side rails up x2 for safety, brake and alarm on. Call light and personal belongings within reach. Continue to monitor.
--- NOTE | 2019-05-25 21:30 | NUR ---
According to the RUBBER STAMP ASSEMBLER VS, Patient had high BP 165/82, HR:80. No other symptoms observed. Scheduled Amlodipine 5 mg tab given. Rechecked BP after 45 minutes, BP: 140/63. Continue to monitor.
[2019-05-25 21:55] VITALS: BP_SYST 140; BP_SYST 165; BP_DIAS 63; BP_DIAS 82
[2019-05-26 05:41] VITALS: BP 164/67
[2019-05-26] MEDS: hydrALAZINE HCL 25 MG TABLET PO PRN (06:32)
[2019-05-26] MEDS: LEVOTHYROXINE SODIUM 100 MCG TABLET PO SCH (06:33)
[2019-05-26] MEDS: PANTOPRAZOLE SODIUM 40 MG TABLET.DR PO SCH (06:33)
--- NOTE | 2019-05-26 06:35 | NUR ---
According to the TIRE SERVICE TECHNICIAN VS, Patient had high BP 163/88, HR:72. No other symptoms observed. PRN Hydralazine 25 mg tab given. Continue to monitor and will endorse to oncoming nurse accordingly.
[2019-05-26 08:01] LABS: BASOPHILS # (AUTO) 0.1 K/uL (0.0-8.0); BASOPHILS % (AUTO) 1.2 % (0.0-2.0); EOSINOPHILS # (AUTO) 0.2 K/uL (0.0-0.7); EOSINOPHILS % (AUTO) 5.3 % (0.0-7.0); HEMATOCRIT 35.6 % (31.2-41.9); HEMOGLOBIN 11.7 g/dL (10.9-14.3); LYMPHOCYTES # (AUTO) 1.2 K/uL (20.0-40.0); LYMPHOCYTES % (AUTO) 26.4 % (20.5-51.5); MEAN CORPUSCULAR HEMOGLOBIN 28.1 uug (24.7-32.8); MEAN CORPUSCULAR HGB CONC 33 g/dL (32.3-35.6); MEAN CORPUSCULAR VOLUME 85.6 fL (75.5-95.3); MONOCYTES # (AUTO) 0.5 K/uL (2.0-10.0); NEUTROPHILS # (AUTO) 2.5 K/uL (1.8-8.9); NEUTROPHILS % (AUTO) 56.1 % (38.5-71.5); PLATELET COUNT (AUTO) 225 K/uL (179-408); RED BLOOD CELL COUNT(AUTO) 4.16 MIL/uL (3.63-4.92); WHITE BLOOD COUNT (AUTO) 4.5 K/uL (3.8-11.8)
[2019-05-26 08:11] LABS: CARBON DIOXIDE 27 mmol/L (21-32); CHLORIDE 109 mmol/L (98-107); CREATININE 1.3 mg/dL (0.6-1.3); GLUCOSE 85 mg/dL (74-106); MAGNESIUM 2.2 mg/dL (1.8-2.4); PHOSPHOROUS 3.4 mg/dL (2.5-4.9); POTASSIUM 4.4 mmol/L (3.5-5.1); UREA NITROGEN, BLOOD 21 mg/dL (7-18)
[2019-05-26] MEDS: AMLODIPINE 5 MG TABLET PO SCH ×2 (08:30→22:44)
[2019-05-26] MEDS: ASPIRIN EC 81 MG TABLET.DR PO SCH (08:30)
[2019-05-26] MEDS: ACIDOPHILUS/BULGARICUS CHEW TAB PO SCH ×2 (08:30→18:38)
[2019-05-26] MEDS: MULTIVITAMINS,THERAPEUTIC TABLET PO SCH (08:30)
[2019-05-26] MEDS: DOCUSATE SODIUM 100 MG CAPSULE PO SCH ×2 (08:30→22:44)
[2019-05-26] MEDS: CARVEDILOL 12.5 MG TABLET PO SCH (08:31)
[2019-05-26] MEDS: ENSURE ENLIVE (VAN) 240 ML LIQUID PO SCH (08:31)
[2019-05-26] MEDS ORDERED: CARVEDILOL 12.5 MG TABLET PO ONE (09:45)
[2019-05-26 10:10] VITALS: BP 155/56
--- NOTE | 2019-05-26 14:49 | NUR ---
INDIVIDUALIZED OVERALL PLAN OF CARE
[2019-05-26 20:00] VITALS: BP 149/72
--- NOTE | 2019-05-26 21:00 | NUR ---
assess pt after her visitors left pt condition stable overall appearances fair denies pain/discomfort , comfort and safety maintained
[2019-05-26] MEDS: CARVEDILOL 25 MG TABLET PO SCH (22:43)
[2019-05-27] MEDS: GUAIFENESIN/DEXTROMETHORPHAN 5 ML UDC PO PRN (06:22)
[2019-05-27] MEDS: PANTOPRAZOLE SODIUM 40 MG TABLET.DR PO SCH (06:23)
[2019-05-27] MEDS: LEVOTHYROXINE SODIUM 100 MCG TABLET PO SCH (06:23)
--- NOTE | 2019-05-27 06:30 | NUR ---
cough medication given for a nagging dry cough results pending
--- NOTE | 2019-05-27 07:26 | NUR ---
report given to incoming nursing all questions answered is aware pt received cough medication and results pending but pt overall appearances stable
--- NOTE | 2019-05-27 07:30 | NUR ---
PATIENT IS AWAKE, IN BED, NO SOB, RESP EVEN NONLABORED, NO ACUTE DISTRESS NOTED, HOWEVER NOTED WITH WET COUGH.
[2019-05-27 08:32] VITALS: BP 126/60
[2019-05-27] MEDS: ASPIRIN EC 81 MG TABLET.DR PO SCH (09:10)
[2019-05-27] MEDS: DOCUSATE SODIUM 100 MG CAPSULE PO SCH ×2 (09:10→22:00)
[2019-05-27] MEDS: ACIDOPHILUS/BULGARICUS CHEW TAB PO SCH ×2 (09:10→17:02)
[2019-05-27] MEDS: CARVEDILOL 25 MG TABLET PO SCH ×2 (09:12→18:47)
[2019-05-27] MEDS: MULTIVITAMINS,THERAPEUTIC TABLET PO SCH (09:13)
[2019-05-27] MEDS: AMLODIPINE 5 MG TABLET PO SCH ×2 (09:14→22:01)
[2019-05-27] MEDS: ENSURE ENLIVE (VAN) 240 ML LIQUID PO SCH (09:15)
--- NOTE | 2019-05-27 15:55 | NUR ---
patient is alert, oriented x4, ambulatory, no sob, resp even nonlabored, skin warm and dry to touch, none episode of cough noted during day time, tolerated meds and meals well, all needs attended timely, call light with in reach
[2019-05-27] MEDS: hydrALAZINE HCL 25 MG TABLET PO PRN (18:56)
--- NOTE | 2019-05-27 19:07 | NUR ---
patient was sitting in the garden since lunch time to 7pm, requested patient to come back to room so vitals can be checked and meds can be given, vitals checked, bp 168/89, routine coreg and prn hydralazine administered as ordered, however patient denied feeling dizzi, or headach, will endorse to next shift accordingly to recheck for effectiveness
[2019-05-27 20:15] VITALS: BP 152/78
[2019-05-28 04:44] VITALS: BP 139/60
--- NOTE | 2019-05-28 06:03 | NUR ---
Pt. resting in bed alert oriented x4. Family visitors at bedside until visiting time was over. Pt. slept throughout night with no complaints. Pt. denies any SOB or difficulty breathing. Pt. denies any pain or discomfort. Pt had 1 BM last night. Safety measures in place. Call light within reach. Will continue to monitor and endorse to AM nurse.
[2019-05-28] MEDS: LEVOTHYROXINE SODIUM 100 MCG TABLET PO SCH (06:34)
[2019-05-28] MEDS: PANTOPRAZOLE SODIUM 40 MG TABLET.DR PO SCH (06:34)
[2019-05-28 07:41] VITALS: BP 148/63
[2019-05-28] MEDS: ENSURE ENLIVE (VAN) 240 ML LIQUID PO SCH (08:00)
[2019-05-28] MEDS: DOCUSATE SODIUM 100 MG CAPSULE PO SCH ×2 (09:08→20:38)
[2019-05-28] MEDS: ACIDOPHILUS/BULGARICUS CHEW TAB PO SCH ×2 (09:08→16:25)
[2019-05-28] MEDS: MULTIVITAMINS,THERAPEUTIC TABLET PO SCH (09:08)
[2019-05-28] MEDS: GUAIFENESIN/DEXTROMETHORPHAN 5 ML UDC PO PRN (09:08)
[2019-05-28] MEDS: CARVEDILOL 25 MG TABLET PO SCH ×2 (09:08→18:00)
[2019-05-28] MEDS: ASPIRIN EC 81 MG TABLET.DR PO SCH (09:09)
[2019-05-28] MEDS: AMLODIPINE 5 MG TABLET PO SCH ×2 (09:09→20:39)
--- NOTE | 2019-05-28 14:28 | NUR ---
SBAR report received this morning. Pt assessed, NAD, no SOB, and denies pain. Pt AAOx4, complaint with medication administration and cooperative with therapies as offered. VSS. Pt reported regular BM this morning. Guests visiting at bedside currently. Call light and personal belongings placed within reach. All safety and comfort measures implemented. Will continue to monitor.
[2019-05-28 15:55] VITALS: BP 106/61
--- NOTE | 2019-05-28 19:30 | NUR ---
Patient alert and oriented x 4. Received in bed watching Tv with family members at bedside. No C/O pain or SOB at this time. BP noted to be elevated. BP medication will be given. Call light and frequently used items within reach. Side rails up bilaterally. Will continue to monitor at this time.
[2019-05-28 21:36] VITALS: BP 159/76
[2019-05-29 04:55] VITALS: BP 140/68
[2019-05-29] MEDS: PANTOPRAZOLE SODIUM 40 MG TABLET.DR PO SCH (06:31)
[2019-05-29] MEDS: LEVOTHYROXINE SODIUM 100 MCG TABLET PO SCH (06:31)
--- NOTE | 2019-05-29 07:33 | NUR ---
PATIENT IS AWAKE, LYING IN BED, NO SOB,RESP EVEN NONLABORED,NO ACUTE DISTRESS NOTED
[2019-05-29 07:58] VITALS: BP 146/72
[2019-05-29] MEDS: ACIDOPHILUS/BULGARICUS CHEW TAB PO SCH ×2 (08:33→17:12)
[2019-05-29] MEDS: ASPIRIN EC 81 MG TABLET.DR PO SCH (08:33)
[2019-05-29] MEDS: MULTIVITAMINS,THERAPEUTIC TABLET PO SCH (08:33)
[2019-05-29] MEDS: DOCUSATE SODIUM 100 MG CAPSULE PO SCH ×2 (08:33→21:38)
[2019-05-29] MEDS: AMLODIPINE 5 MG TABLET PO SCH ×2 (08:33→21:38)
[2019-05-29] MEDS: CARVEDILOL 25 MG TABLET PO SCH ×2 (08:35→17:13)
[2019-05-29] MEDS: ENSURE ENLIVE (VAN) 240 ML LIQUID PO SCH (08:36)
[2019-05-29 16:21] VITALS: BP 138/70
--- NOTE | 2019-05-29 16:26 | NUR ---
patient is alert, oriented x4, verbally responsive, no sob, resp even nonlabored,skin warm and dry to touch, no changes noted, all needs attended timely. call light with in reach.
[2019-05-29] MEDS: GUAIFENESIN/DEXTROMETHORPHAN 5 ML UDC PO PRN (18:02)
--- NOTE | 2019-05-29 20:00 | NUR ---
Patient received awake and in bed with family at side. Patient is alert and oriented x4 and has no complaints of pain at this time. All safety and fall precaution measures are in place. Call light and personal items are within reach at all times. Will continue to monitor.
[2019-05-29 21:17] VITALS: BP 127/68
[2019-05-30 05:10] VITALS: BP 142/78
[2019-05-30] MEDS: LEVOTHYROXINE SODIUM 100 MCG TABLET PO SCH (06:37)
[2019-05-30] MEDS: PANTOPRAZOLE SODIUM 40 MG TABLET.DR PO SCH (06:37)
[2019-05-30] MEDS: ENSURE ENLIVE (VAN) 240 ML LIQUID PO SCH (08:00)
[2019-05-30] MEDS: AMLODIPINE 5 MG TABLET PO SCH ×2 (08:33→20:37)
[2019-05-30] MEDS: CARVEDILOL 25 MG TABLET PO SCH ×2 (08:33→17:05)
[2019-05-30] MEDS: ASPIRIN EC 81 MG TABLET.DR PO SCH (08:33)
[2019-05-30] MEDS: ACIDOPHILUS/BULGARICUS CHEW TAB PO SCH ×2 (08:33→17:05)
[2019-05-30] MEDS: MULTIVITAMINS,THERAPEUTIC TABLET PO SCH (08:33)
[2019-05-30] MEDS: DOCUSATE SODIUM 100 MG CAPSULE PO SCH ×2 (08:34→20:37)
[2019-05-30 08:38] VITALS: BP 133/71
--- NOTE | 2019-05-30 09:30 | NUR ---
Received pt. in bed in no distress. A/OX4 verbally responsive and able to make her needs known. Seen by ADVISORY INTERN this AM with order for nystatin cream to be applied to lt. foot/sole area. All needs attended and met promptly. All due medications given as ordered and tolerated well. Safety measures in place. Call light and all frequently used items within pt. reach. Will continue to monitor accordingly.
[2019-05-30] MEDS: NYSTATIN CREAM 30 GM TUBE TOP SCH ×2 (09:53→20:36)
[2019-05-30 16:11] VITALS: BP 143/71
--- NOTE | 2019-05-30 18:05 | NUR ---
End of shift note: No significant change during this shift. All needs attended and met promptly. Safety measures in placed. Bed in low position, brake on, side rails up x2 as an enabler. Call light and all frequently used items within pt. reach. Will endorse to next shift accordingly.
--- NOTE | 2019-05-30 19:35 | NUR ---
Patient received in bed, AAO x4. Able to make needs known. No acute distress or SOB noted. On room air. No Complain of pain at this time. Family and friends at bedside. Physical assessment done. Safety measures observed. Fall precaution maintained. Bed in low position, side rails up x2 for safety, brake and alarm on. call light and personal belongings within reach. Continue to monitor.
[2019-05-30 21:41] VITALS: BP 139/61
[2019-05-31 04:30] VITALS: BP 157/75
[2019-05-31] MEDS: LEVOTHYROXINE SODIUM 100 MCG TABLET PO SCH (06:38)
[2019-05-31] MEDS: PANTOPRAZOLE SODIUM 40 MG TABLET.DR PO SCH (06:38)
[2019-05-31] MEDS: hydrALAZINE HCL 25 MG TABLET PO PRN (06:38)
--- NOTE | 2019-05-31 06:57 | NUR ---
Patient developed high BP 157/75, HR:68. No other symptoms observed. PRN Hydralazine 25 mg tab given. Continue to monitor and will endorse to oncoming nurse accordingly.
[2019-05-31 07:57] VITALS: BP 132/56
[2019-05-31] MEDS: MULTIVITAMINS,THERAPEUTIC TABLET PO SCH (09:24)
[2019-05-31] MEDS: CARVEDILOL 25 MG TABLET PO SCH ×2 (09:24→17:11)
[2019-05-31] MEDS: DOCUSATE SODIUM 100 MG CAPSULE PO SCH ×2 (09:24→20:34)
[2019-05-31] MEDS: ASPIRIN EC 81 MG TABLET.DR PO SCH (09:25)
[2019-05-31] MEDS: ACIDOPHILUS/BULGARICUS CHEW TAB PO SCH ×2 (09:25→17:10)
[2019-05-31] MEDS: AMLODIPINE 5 MG TABLET PO SCH ×2 (09:25→20:35)
[2019-05-31] MEDS: NYSTATIN CREAM 30 GM TUBE TOP SCH ×2 (09:26→20:35)
[2019-05-31] MEDS: ENSURE ENLIVE (VAN) 240 ML LIQUID PO SCH (09:26)
--- NOTE | 2019-05-31 13:26 | NUR ---
INTERDISCIPLINARY TEAM CONFERENCE
[2019-05-31 16:00] VITALS: BP 141/72
[2019-05-31 20:43] VITALS: BP 134/63
[2019-06-01] MEDS: LEVOTHYROXINE SODIUM 100 MCG TABLET PO SCH (06:30)
[2019-06-01] MEDS: PANTOPRAZOLE SODIUM 40 MG TABLET.DR PO SCH (06:30)
[2019-06-01 06:50] VITALS: BP 136/78
[2019-06-01 08:00] VITALS: BP 121/63
[2019-06-01] MEDS: NYSTATIN CREAM 30 GM TUBE TOP SCH ×2 (09:16→20:41)
[2019-06-01] MEDS: MULTIVITAMINS,THERAPEUTIC TABLET PO SCH (09:16)
[2019-06-01] MEDS: ACIDOPHILUS/BULGARICUS CHEW TAB PO SCH ×2 (09:17→17:38)
[2019-06-01] MEDS: ASPIRIN EC 81 MG TABLET.DR PO SCH (09:17)
[2019-06-01] MEDS: AMLODIPINE 5 MG TABLET PO SCH ×2 (09:17→20:40)
[2019-06-01] MEDS: DOCUSATE SODIUM 100 MG CAPSULE PO SCH ×2 (09:17→20:40)
[2019-06-01] MEDS: ENSURE ENLIVE (VAN) 240 ML LIQUID PO SCH (09:18)
[2019-06-01] MEDS: CARVEDILOL 25 MG TABLET PO SCH ×2 (09:18→17:38)
--- NOTE | 2019-06-01 20:51 | NUR ---
Received pt resting in bed. AAO x4. Family at bedside. No acute distress noted. Denies pain/ discomfort. All due meds given as ordered. Pt to be discharge tomorrow. Safety measures maintained. Call light and personal belongings within reach. Will continue to monitor.
[2019-06-01 21:26] VITALS: BP 156/72
[2019-06-02 06:04] VITALS: BP 135/59
[2019-06-02] MEDS: LEVOTHYROXINE SODIUM 100 MCG TABLET PO SCH (06:30)
[2019-06-02] MEDS: PANTOPRAZOLE SODIUM 40 MG TABLET.DR PO SCH (06:30)
[2019-06-02 08:00] VITALS: BP 145/83
[2019-06-02] MEDS: CARVEDILOL 25 MG TABLET PO SCH (08:49)
[2019-06-02] MEDS: ENSURE ENLIVE (VAN) 240 ML LIQUID PO SCH (08:49)
[2019-06-02] MEDS: ASPIRIN EC 81 MG TABLET.DR PO SCH (08:50)
[2019-06-02] MEDS: DOCUSATE SODIUM 100 MG CAPSULE PO SCH (08:50)
[2019-06-02] MEDS: ACIDOPHILUS/BULGARICUS CHEW TAB PO SCH (08:51)
[2019-06-02 08:52] VITALS: BP 135/59
[2019-06-02] MEDS: AMLODIPINE 5 MG TABLET PO SCH (08:52)
[2019-06-02] MEDS: MULTIVITAMINS,THERAPEUTIC TABLET PO SCH (08:53)
[2019-06-02] MEDS: NYSTATIN CREAM 30 GM TUBE TOP SCH (08:53)
== END 2019-06-02 15:00 | disposition home or self-care (01) | DRG 280 ==
PROVIDERS: ADMIT Physical Medicine & Rehabilitation Pain Medicine; ATTEND Physical Medicine & Rehabilitation Pain Medicine
DX: I13.0 Hypertensive heart and chronic kidney disease with heart failure and stage 1 through stage 4 chronic kidney disease, or unspecified chronic kidney disease (principal); I50.43 Acute on chronic combined systolic (congestive) and diastolic (congestive) heart failure; I21.A1 Myocardial infarction type 2; J96.01 Acute respiratory failure with hypoxia; I16.9 Hypertensive crisis, unspecified; D68.59 Other primary thrombophilia; I31.3 Pericardial effusion (noninflammatory); I35.8 Other nonrheumatic aortic valve disorders; N18.9 Chronic kidney disease, unspecified; N27.0 Small kidney, unilateral; R77.1 Abnormality of globulin; Z68.32 Body mass index [BMI] 32.0-32.9, adult; E66.9 Obesity, unspecified; M79.89 Other specified soft tissue disorders; E03.9 Hypothyroidism, unspecified; L29.9 Pruritus, unspecified; R31.0 Gross hematuria
CPT/HCPCS: 36415; 71045; 83735; 84100; 85025; Q0144